=== PATIENT | male | born 2000 | race Two or more races ===

== ENCOUNTER 2021-05-23 16:58 | Emergency (ER) | payer OTHER ==
[2021-05-23 17:02] VITALS: BP 132/75; PULSE 78; TEMP 98.7; BMI 34.5
== END 2021-05-23 17:45 | disposition home or self-care (01) ==
LOC: FER 16:58
DX: H66.92 Otitis media, unspecified, left ear (principal); H60.502 Unspecified acute noninfective otitis externa, left ear
CPT/HCPCS: 99283-25